=== PATIENT | male | born 1935 | race Caucasian/White ===

== ENCOUNTER → 2018-11-28 | Outpatient (CLI) | payer MEDICARE ==
[~2018-11-28] MED LIST: AMOCLA875 PO; ASPI325 PO; ATEN50 PO; CLOP75 PO; Cleocin HCl150 MG PO; FISH1000 PO; HYDR1TAB94 PO; INSR10I; INSUASPI; INSUL100I; LEVSOD137 PO; LISI5 PO; OMEP20ER PO; OXYC5 PO; VITAMIN D-32000 UNIT PO
== END | disposition home or self-care (01) ==
LOC: LAB SHORT 09:24 → PLD 09:24
DX: C44.212 Basal cell carcinoma of skin of right ear and external auricular canal (principal)
CPT/HCPCS: 88305

== ENCOUNTER → 2018-12-31 | Outpatient (CLI) | payer MEDICARE | LOC: LAB SHORT 13:57 → PLD 13:57 | DX: C44.212 Basal cell carcinoma of skin of right ear and external auricular canal (principal) | CPT/HCPCS: 88305 ==

== ENCOUNTER 2020-10-19 13:48 | Emergency (ER) | payer MEDICARE ==
[~2020-10-19] VITALS: Ht 180.3 cm; Wt 95.2 kg
[~2020-10-19 13:48] MED LIST changes: +ATOR80 PO; +Aspirin EC81 MG PO; +FISH OIL 1,2001 EACH PO; +HUMULIN R500 UNIT/1 SC; +INSULANPEN SC; +Lisinopril2.5 MG PO; +METO50 PO; +NICO21TP TOP; +NITR.4SL SL; +OMEPRAZOLE20 MG PO; +Zocor20 MG PO
[2020-10-19 15:30] LABS: Source, Urine Clean Catch
[2020-10-19 15:40] LABS: Appearance, Urine Clear (Clear); Bilirubin, Urine Neg (Neg); Blood, Urine 2+ (Neg); Color, Urine Yellow (P-Yellow); Glucose Qualitative, Urine 3+ (Neg); Ketones, Urine Neg (Neg); Leukocyte Esterase, Urine Neg (Neg); Nitrite, Urine Neg (Neg); Protein, Urine 4+ (Neg); Urobilinogen, Urine NORM (Normal)
[2020-10-19 15:53] LABS: BASOPHILS ABSOLUTE AUTO 0.05 K/mm3 (0.00-0.23); BASOPHILS PERCENT AUTO 1 % (0-2); EOSINOPHILS ABSOLUTE AUTO 0.16 K/mm3 (0.00-0.68); EOSINOPHILS PERCENT AUTO 3 % (0-6); Hematocrit 39.7 % (37.0-53.0); IMMATURE GRAN ABSOLUTE AUTO 0.04 K/mm3 (0.00-0.10); IMMATURE GRAN PERCENT AUTO 1 % (0-1); LYMPHOCYTES ABSOLUTE AUTO 1.64 K/mm3 (0.84-5.20); LYMPHOCYTES PERCENT AUTO 25 % (21-46); MONOCYTES ABSOLUTE AUTO 0.36 K/mm3 (0.16-1.47); MONOCYTES PERCENT AUTO 6 % (4-13); Mean Corpuscular HGB 31.3 pg (26.0-34.0); Mean Corpuscular HGB Conc 32.7 g/dL (31.5-36.5); Mean Corpuscular Volume 95 fL (80-100); Mean Platelet Volume 9.6 fL (9.1-12.4); NEUTROPHILS ABSOLUTE AUTO 4.24 K/mm3 (1.96-9.15); NEUTROPHILS PERCENT AUTO 65 % (41-73); Platelet Count 156 K/mm3 (150-400); RDW Coefficient Variation 15.2 % (11.7-14.2); RDW Standard Deviation 52.7 fL (35.1-46.3); Red Blood Cell Count 4.16 M/mm3 (4.30-5.90); White Blood Cell Count 6.49 K/mm3 (4.00-11.30)
[2020-10-19 16:03] LABS: Bacteria Rare /hpf; Red Blood Cells, Urine 0-2 /hpf (0-2); Squamous Epithelial Cells Not Seen /hpf (Few); White Blood Cells, Urine 0-2 /hpf (0-5)
[2020-10-19 16:19] LABS: Bun/Creatinine Ratio 15.5 (12.0-20.0); Calcium, Blood 8.7 mg/dL (8.5-10.1); Creatinine, Blood 1.74 mg/dL (0.60-1.20); Potassium, Blood 3.9 mmol/L (3.5-5.5)
[2020-10-19] MEDS ORDERED: Flomax0.4 MG PO (16:53)
== END 2020-10-19 17:30 | disposition home or self-care (01) ==
LOC: ER 13:48
PROVIDERS: Physician Assistant
DX: R33.9 Retention of urine, unspecified (principal); E11.9 Type 2 diabetes mellitus without complications; E03.9 Hypothyroidism, unspecified; I25.10 Atherosclerotic heart disease of native coronary artery without angina pectoris; I25.2 Old myocardial infarction; E78.00 Pure hypercholesterolemia, unspecified; F17.210 Nicotine dependence, cigarettes, uncomplicated; Z95.1 Presence of aortocoronary bypass graft; Z79.4 Long term (current) use of insulin; Z79.82 Long term (current) use of aspirin; Z79.899 Other long term (current) drug therapy; Z79.02 Long term (current) use of antithrombotics/antiplatelets; Z96.0 Presence of urogenital implants
CPT/HCPCS: 36415; 51702; 51798; 80048; 81001; 85025; 99283-25

== ENCOUNTER → 2020-10-27 | Outpatient (CLI) | payer MEDICARE ==
[~2020-10-27] MED LIST changes: +Flomax0.4 MG PO
== END | disposition home or self-care (01) ==
LOC: LAB SHORT 16:34
DX: N39.0 Urinary tract infection, site not specified (principal)
CPT/HCPCS: 87077; 87086; 87186

== ENCOUNTER 2020-10-30 18:41 | Emergency (ER) | payer OTHER, MEDICARE ==
[~2020-10-30] VITALS: Ht 182.9 cm; Wt 99.8 kg
[2020-10-30 19:10] LABS: BASOPHILS ABSOLUTE AUTO 0.04 K/mm3 (0.00-0.23); BASOPHILS PERCENT AUTO 0 % (0-2); EOSINOPHILS ABSOLUTE AUTO 0.01 K/mm3 (0.00-0.68); EOSINOPHILS PERCENT AUTO 0 % (0-6); Hematocrit 35.4 % (37.0-53.0); Hemoglobin 11.5 g/dL (13.5-17.5); IMMATURE GRAN ABSOLUTE AUTO 0.11 K/mm3 (0.00-0.10); IMMATURE GRAN PERCENT AUTO 1 % (0-1); LYMPHOCYTES ABSOLUTE AUTO 0.55 K/mm3 (0.84-5.20); LYMPHOCYTES PERCENT AUTO 6 % (21-46); MONOCYTES ABSOLUTE AUTO 0.45 K/mm3 (0.16-1.47); MONOCYTES PERCENT AUTO 5 % (4-13); Mean Corpuscular HGB 31.4 pg (26.0-34.0); Mean Corpuscular HGB Conc 32.5 g/dL (31.5-36.5); Mean Corpuscular Volume 97 fL (80-100); Mean Platelet Volume 9.2 fL (9.1-12.4); NEUTROPHILS ABSOLUTE AUTO 8.51 K/mm3 (1.96-9.15); NEUTROPHILS PERCENT AUTO 88 % (41-73); Platelet Count 120 K/mm3 (150-400); RDW Standard Deviation 53.6 fL (35.1-46.3); Red Blood Cell Count 3.66 M/mm3 (4.30-5.90); White Blood Cell Count 9.67 K/mm3 (4.00-11.30)
[2020-10-30 19:23] LABS: International Normalized Ratio 1.07; Prothrombin Time Results 11.4 Sec (9.7-11.5)
[2020-10-30 19:32] LABS: Alanine Aminotransfer (ALT/SGP 18 U/L (12-78); Albumin, Blood 3.2 g/dL (3.4-5.0); Albumin/Globulin Ratio 0.7 (0.8-1.8); Alk Phos 102 U/L (50-136); Anion Gap 9 mmol/L (6-16); Aspartate Aminotrans (AST/SGOT 26 U/L (12-37); Bilirubin, Total 1.1 mg/dL (0.1-1.0); Blood Urea Nitrogen 27 mg/dL (8-24); Bun/Creatinine Ratio 16.3 (12.0-20.0); CO2, Blood 23 mmol/L (21-32); Calcium, Blood 9.2 mg/dL (8.5-10.1); Chloride, Blood 103 mmol/L (98-108); Creatinine, Blood 1.66 mg/dL (0.60-1.20); Ethanol (Alcohol), Blood, Med <3 mg/dL; Globulin, Blood 4.5 g/dL (2.2-4.0); Glomerular Filtration Rate 42 (60-); Glucose, Blood 237 mg/dL (70-99); Potassium, Blood 4.4 mmol/L (3.5-5.5); Sodium, Blood 135 mmol/L (136-145); Total Protein, Blood 7.7 g/dL (6.4-8.2)
[2020-10-30 20:41] LABS: Source, Urine Catheter
[2020-10-30 20:43] LABS: Bilirubin, Urine Neg (Neg); Blood, Urine 5+ (Neg); Glucose Qualitative, Urine 2+ (Neg); Ketones, Urine 2+ (Neg); Leukocyte Esterase, Urine Neg (Neg); Nitrite, Urine Neg (Neg); Protein, Urine 4+ (Neg); Urobilinogen, Urine NORM (Normal); pH, Urine 6.5 (5.0-8.0)
[2020-10-30 20:45] LABS: Appearance, Urine Turbid (Clear); Color, Urine Red (P-Yellow)
[2020-10-30 20:49] LABS: Bacteria Not Seen /hpf; Red Blood Cells, Urine TNTC /hpf (0-2); Squamous Epithelial Cells Not Seen /hpf (Few)
== END 2020-10-30 21:15 | disposition short-term general hospital (02) ==
LOC: ER 18:41
PROVIDERS: Emergency Medicine
DX: I62.01 Nontraumatic acute subdural hemorrhage (principal); E11.9 Type 2 diabetes mellitus without complications; E78.5 Hyperlipidemia, unspecified; I10 Essential (primary) hypertension; I25.2 Old myocardial infarction; F17.210 Nicotine dependence, cigarettes, uncomplicated; Z79.02 Long term (current) use of antithrombotics/antiplatelets; Z79.899 Other long term (current) drug therapy; Z79.4 Long term (current) use of insulin; Z95.1 Presence of aortocoronary bypass graft
CPT/HCPCS: 36415; 51702; 70450; 71045; 71260; 72125; 74177; 80053; 81001; 82947; 83690; 85025; 85610; 86850; 86900; 86901; 87077; 87086; 87186; 93005; 93010; 96374-59; 96375-59; 99285-25; G0480; J1170; J2405; L0160; Q9967

== ENCOUNTER 2025-10-22 19:34 | Inpatient (IN) | payer MEDICARE ==
[~2025-10-22] VITALS: Ht 172.7 cm; Wt 96.9 kg
[2025-10-22 20:25] LABS: BASOPHILS ABSOLUTE AUTO 0.01 K/mm3 (0.00-0.23); BASOPHILS PERCENT AUTO 0 % (0-2); EOSINOPHILS ABSOLUTE AUTO 0.01 K/mm3 (0.00-0.68); EOSINOPHILS PERCENT AUTO 0 % (0-6); Hematocrit 29.5 % (37.0-53.0); Hemoglobin 9.7 g/dL (13.5-17.5); IMMATURE GRAN ABSOLUTE AUTO 0.07 K/mm3 (0.00-0.10); IMMATURE GRAN PERCENT AUTO 2 % (0-1); LYMPHOCYTES ABSOLUTE AUTO 0.58 K/mm3 (0.84-5.20); LYMPHOCYTES PERCENT AUTO 14 % (21-46); MONOCYTES ABSOLUTE AUTO 0.32 K/mm3 (0.16-1.47); MONOCYTES PERCENT AUTO 8 % (4-13); Mean Corpuscular HGB Conc 32.9 g/dL (31.5-36.5); Mean Corpuscular Volume 96 fL (80-100); NEUTROPHILS ABSOLUTE AUTO 3.04 K/mm3 (1.96-9.15); NEUTROPHILS PERCENT AUTO 76 % (41-73); NRBC ABSOLUTE 0.00 K/mm3 (0.00-0.02); NRBC Auto 0.0 /100 WBC (0.0-0.2); Platelet Count 91 K/mm3 (150-400); RDW Coefficient Variation 15.1 % (11.7-14.2); RDW Standard Deviation 53.2 fL (35.1-46.3)
[2025-10-22 20:51] LABS: Alanine Aminotransfer (ALT/SGP 30.0 U/L (12-78); Albumin, Blood 2.7 g/dL (3.4-5.0); Albumin/Globulin Ratio 0.8 (0.8-1.8); Anion Gap 10.0 mmol/L (3-11); Aspartate Aminotrans (AST/SGOT 22.0 U/L (12-37); Bilirubin, Total 0.3 mg/dL (0.1-1.0); Blood Urea Nitrogen 98.0 mg/dL (8-24); CO2, Blood 15.0 mmol/L (21-32); Calcium, Blood 6.0 mg/dL (8.5-10.1); Chloride, Blood 119.0 mmol/L (98-108); Creatinine, Blood 4.69 mg/dL (0.60-1.20); Globulin, Blood 3.6 g/dL (2.2-4.0); Glucose, Blood 95.0 mg/dL (70-99); Magnesium, Blood 0.9 mg/dL (1.6-2.4); Potassium, Blood 4.3 mmol/L (3.5-5.5); Sodium, Blood 140.0 mmol/L (136-145); Total Protein, Blood 6.3 g/dL (6.4-8.2)
[2025-10-22 21:13] LABS: Influenza A, PCR NEGATIVE (NEGATIVE); Influenza B, PCR NEGATIVE (NEGATIVE); Resp Syncytial Virus, PCR NEGATIVE (NEGATIVE); SARS-Cov-2 (COVID-19) PCR, MMC NEGATIVE (NEGATIVE)
[2025-10-22] MEDS ORDERED: Magnesium Sulf 2 GM/Water 50ML 50 ML IV ONE (21:20)
[2025-10-22] MEDS ORDERED: FentaNYL Citrate 50 MCG/ML 2 ML Injection IV ONE (21:30)
[2025-10-22 21:43] LABS: Source, Urine Clean Catch
[2025-10-22] MEDS ORDERED: NS 1,000 ML IV SCH (21:50)
[2025-10-22 21:57] LABS: Glucose Qualitative, Urine Neg (Neg); Ketones, Urine Neg (Neg); Leukocyte Esterase, Urine Neg (Neg); Protein, Urine 3+ (Neg); Specific Gravity, Urine 1.020 (1.003-1.022); Urobilinogen, Urine NORM (Normal)
[2025-10-22 22:12] LABS: Bilirubin, Urine 1+ (Neg); Color, Urine Yellow (P-Yellow)
[2025-10-22 22:13] LABS: White Blood Cells, Urine 0-2 /hpf (0-5)
[2025-10-22] MEDS ORDERED: Ondansetron HCl 2 MG / ML 2ML Vial IV PRN (23:35)
[2025-10-22] MEDS ORDERED: FLU VACC TS2025(65UP)/MF59C/PF 45 MCG/0.5 ML SYRINGE IM SCH (23:35)
[2025-10-22] MEDS ORDERED: NS 1,000 ML IV ONE (23:43)
[2025-10-22] MEDS ORDERED: Cefepime HCl 1,000 MG in NS 100 ML IV SCH (23:49)
[2025-10-23] VITALS (85 sets, daily range): BP systolic 74–153; BP diastolic 47–115
[2025-10-23] MEDS ORDERED: NS 1,000 ML IV SCH
[2025-10-23 00:49] LABS: Creatinine, Urine Random 148.0 mg/dL (27.00-270.00); Sodium, Urine, Random 23.0 mmol/L (20-110)
[2025-10-23 01:14] LABS: Thyroid Stimulating Hormone 6.1 uIU/mL (0.360-4.800)
[2025-10-23] MEDS ORDERED: Sodium Bicarb 8.4% Inj 150 MEQ in Dextrose 5% 1,000 ML IV ONE (01:30)
[2025-10-23 02:10] LABS: BASOPHILS ABSOLUTE AUTO 0.01 K/mm3 (0.00-0.23); BASOPHILS PERCENT AUTO 0 % (0-2); EOSINOPHILS ABSOLUTE AUTO 0.02 K/mm3 (0.00-0.68); EOSINOPHILS PERCENT AUTO 1 % (0-6); Hematocrit 24.8 % (37.0-53.0); Hemoglobin 8.3 g/dL (13.5-17.5); IMMATURE GRAN ABSOLUTE AUTO 0.09 K/mm3 (0.00-0.10); IMMATURE GRAN PERCENT AUTO 2 % (0-1); LYMPHOCYTES ABSOLUTE AUTO 0.73 K/mm3 (0.84-5.20); LYMPHOCYTES PERCENT AUTO 19 % (21-46); MONOCYTES ABSOLUTE AUTO 0.30 K/mm3 (0.16-1.47); MONOCYTES PERCENT AUTO 8 % (4-13); Mean Corpuscular HGB Conc 33.5 g/dL (31.5-36.5); Mean Corpuscular Volume 95 fL (80-100); NEUTROPHILS ABSOLUTE AUTO 2.72 K/mm3 (1.96-9.15); NEUTROPHILS PERCENT AUTO 70 % (41-73); NRBC ABSOLUTE 0.00 K/mm3 (0.00-0.02); NRBC Auto 0.0 /100 WBC (0.0-0.2); Platelet Count 81 K/mm3 (150-400); RDW Coefficient Variation 15.2 % (11.7-14.2); RDW Standard Deviation 53.1 fL (35.1-46.3)
[2025-10-23 04:47] LABS: Alanine Aminotransfer (ALT/SGP 48.0 U/L (12-78); Albumin, Blood 2.3 g/dL (3.4-5.0); Albumin/Globulin Ratio 0.7 (0.8-1.8); Anion Gap 9.0 mmol/L (3-11); Aspartate Aminotrans (AST/SGOT 52.0 U/L (12-37); Bilirubin, Total 0.3 mg/dL (0.1-1.0); Blood Urea Nitrogen 82.0 mg/dL (8-24); CO2, Blood 18.0 mmol/L (21-32); Calcium, Blood 5.6 mg/dL (8.5-10.1); Chloride, Blood 120.0 mmol/L (98-108); Creatinine, Blood 3.91 mg/dL (0.60-1.20); Globulin, Blood 3.2 g/dL (2.2-4.0); Glucose, Blood 89.0 mg/dL (70-99); Magnesium, Blood 1.1 mg/dL (1.6-2.4); Phosphorus, Blood 5.9 mg/dL (2.5-4.9); Potassium, Blood 3.8 mmol/L (3.5-5.5); Sodium, Blood 143.0 mmol/L (136-145); Total Protein, Blood 5.5 g/dL (6.4-8.2)
[2025-10-23] MEDS ORDERED: Mag Sulfate 1 GM/D5% 100ML 100 ML IV STA (05:23)
--- NOTE | 2025-10-23 05:28 | NUR ---
PATIENT TO ICU 8 FROM ER AT 0220. PATIENT IS ALERT AND ORIENTED X4, OHKAY OWINGEH. SP02 94% ON RA, DENIES SOB. HR SR 60s, DENIES CP/PRESSURE AT THIS TIME. LEVOPHED INFUSING TO MAINTAIN MAP >65. CENTRAL LINE PLACED AFTER PATIENT ARRIVED TO ICU, INSERTION SITE BLEEDING AND SATURATED DRESSING. DRESSING CHANGED, SHELDON AND GAUZE PLACED UNDER CHG DRESSING AND PRESSURE HELD TO SITE. SITE CONTINUES TO BLEED BUT APPEARS TO BE LESS AT THIS TIME, WILL CONTINUE TO REASSES. TEMP PACE PATENT AND DRAINING DARK [place] URINE TO GRAVITY. TEMP 96.2, WARM BLANKETS AND TEMP TURNED UP IN ROOM. PATIENT HAS SKIN TEAR TO RIGHT FOREARM. PHOTOS TAKEN AND DRESSING APPLIED. PHOTOS OF BLE, DISCOLORED AND DRY SKIN WITH SOME SCABS. ARTERIAL US DONE THIS SHIFT. SEE ASSESSMENT FOR MORE INFORMATION
[2025-10-23] MEDS ORDERED: CALCIUM GLUC IN NACL, ISO-OSM 50 ML IV ONE ×2 (06:30→18:50)
[2025-10-23] MEDS ORDERED: Insulin Human Lispro 100 Units/ML 3ML Syringe SC SCH (07:30)
[2025-10-23] MEDS ORDERED: Darbepoetin (Pharmacy Consult) SC SCH (07:35)
--- NOTE | 2025-10-23 08:43 | NUR ---
DR. QUINONEZ INFORMED OF CONSULT THIS MORNING. ORDERS TO DC ALL LABS AND THEN NEW LABS ORDERED FOR NOON. DECREASE RATE OF BICARB GTT TO 100ML/HR AND RUN UNTIL NOON LABS ARE BACK. PT HAS ONGOING OOZING FROM CENTRAL LINE, BUT CLOTS ARE FORMING ON THE GAUZE REINFORCING THE DRESSING. DRESSING LEFT IN PLACE SINCE CLOTS ARE FORMING AND CLEAN GAUZE PLACED BEHIND PT TO BE ABLE TO ASSESS FOR NEW BLEEDING.
[2025-10-23] MEDS ORDERED: Sodium Bicarb 8.4% Inj 150 MEQ in Dextrose 5% 1,000 ML IV SCH (08:45)
[2025-10-23] MEDS ORDERED: Heparin Sodium,Porcine 5,000 UNIT/0.5 ML SDV SC SCH (09:00)
[2025-10-23] MEDS ORDERED: Lactobacil 2-S.Thermo-Bifido 1 1 Cap PO SCH (09:00)
[2025-10-23] MEDS ORDERED: FentaNYL Citrate 50 MCG/ML 2 ML Injection IV PRN (11:10)
[2025-10-23] MEDS ORDERED: PANTOPRAZOLE PO (12:08)
[2025-10-23] MEDS ORDERED: TAMS.4ER PO (12:09)
[2025-10-23] MEDS ORDERED: FINA5 PO (12:09)
--- NOTE | 2025-10-23 12:17 | NUR ---
REASSESSMENT PT HAS BEEN RESTING IN BED THROUGHOUT THE MORNING. LEVOPHED WAS ABLE TO BE TITRATED OFF. PT'S CENTRAL LINE HAS STOPPED OOZING. PT IS ALERT AND ORIENTED. LUNGS CLEAR, RA, SR. PAEC IN PLACE AND 24 HOUR URINE IN PROCESS OF BEING COLLECTED. NO STOOL SO FAR THIS MORNING. PT'S FAMILY CAME AND WERE UPDATED.
[2025-10-23 12:31] LABS: Prothrombin Time Results 14.0 Sec (9.7-11.5)
[2025-10-23 12:32] LABS: CO2, Blood 20.0 mmol/L (21-32); Magnesium, Blood 1.2 mg/dL (1.6-2.4)
[2025-10-23] MEDS ORDERED: Calcium Gluconate 10% 1,000 MG in NS 50 ML IV ONE (13:15)
[2025-10-23] MEDS ORDERED: Magnesium Sulf 2 GM/Water 50ML 50 ML IV ONE (13:15)
[2025-10-23] MEDS ORDERED: Darbepoetin Alfa In Albumn Sol 40 MCG/0.4 ML SC SCH (17:00)
--- NOTE | 2025-10-23 17:47 | NUR ---
SHIFT SUMMARY PT HAS BEEN RESTING IN BED THROUGHOUT THE SHIFT. THE LEVOPHED WAS ABLE TO BE TITRATED OFF TODAY, BUT HAD TO BE TURNED BACK ON WHEN HE FELL ASLEEP. HIS OXYGEN WAS ALSO TITRATED OFF UNTIL HE FELL BACK ASLEEP. PT WAS DROPPING TO THE MID 70S BEFORE RETURNING TO THE 90S. ONCE 2L/NC PLACED ON PT, HE MAINTAINED ABOVE 90%. LUNGS HAVE BEEN CLEAR, SR. PACE DRAINING YELLOW URINE WITH SMALL AMT OF SEDIMENT. 24 HOUR URINE COLLECTION IN PROCESS. NO BMS THIS SHIFT. PT'S ABDOMEN IS DISTENDED, BOWEL TONES HYPOACTIVE. HE HAS HAD TROUBLE GETTING COMFORTABLE IN THE BED SO HAS REFUSED TURNS THROUGH THE SECOND HALF OF THE SHIFT. SMALL POSITION CHANGES MADE AND PT DOES LIKE TO BE MOVED AROUND LONG HE ENDS UP BACK ON HIS BACK. CENTRAL LINE DRESSING CHANGED THIS AFTERNOON. MAIN CLOT AT INSERTION SITE LEFT INTACT FOR NOW SINCE THERE WAS SO MUCH BLEEDING THIS MORNING. REST OF THE AREA CLEANED AND CHG DRESSING APPLIED. ONLY SM, DIME SIZE AMT OF NEW OOZING SINCE THE DRESSING CHANGE.
[2025-10-23] MEDS ORDERED: MetroNIDAZOLE 500MG/NS 100 ml 100 ML IV SCH (18:00)
[2025-10-23 18:33] LABS: Magnesium, Blood 1.8 mg/dL (1.6-2.4)
[2025-10-23 18:39] LABS: Albumin, Blood 2.3 g/dL (3.4-5.0); Anion Gap 9 mmol/L (3-11); Blood Urea Nitrogen 74 mg/dL (8-24); CO2, Blood 20 mmol/L (21-32); Calcium, Blood 5.9 mg/dL (8.5-10.1); Chloride, Blood 119 mmol/L (98-108); Creatinine, Blood 3.45 mg/dL (0.60-1.20); Glucose, Blood 111 mg/dL (70-99); Phosphorus, Blood 5.6 mg/dL (2.5-4.9); Potassium, Blood 3.6 mmol/L (3.5-5.5); Sodium, Blood 144 mmol/L (136-145)
--- NOTE | 2025-10-23 20:00 | NUR ---
ASSUMPTION OF CARE: ASSUMED CARE AT START OF SHIFT (1899). REPORT RECEIVED FROM DAY SH IFT RN. PT IS DOING WELL AND RESTING IN BED. PT IS ALERT AND FOLLOWING COMMANDS. PT DENIES ANY PAIN, CP, OR SOB AT THIST AMY. LUNG SOUNDS ARE CLEAR AND EQUAL, ON RA WITH SPO2 >95%. SINUS RYTHM WITH SBP: 90-120'S MAP >65 HR: 70'S. LEVOPHED ON STANDBY SINCE 1699. IV: CENTERAL LINE IN RIJ. PACE CATHETER IN PLACE AND DRAINING TO GRAVITY. LINES, CORDS, AND TUBES PLACED OUT OF REACH. CALLL LIGHT PLACED WITHIN REACH.
[2025-10-24] VITALS (21 sets, daily range): BP systolic 76–162; BP diastolic 53–88
[2025-10-24 04:27] LABS: BASOPHILS ABSOLUTE AUTO 0.01 K/mm3 (0.00-0.23); BASOPHILS PERCENT AUTO 0 % (0-2); EOSINOPHILS ABSOLUTE AUTO 0.03 K/mm3 (0.00-0.68); EOSINOPHILS PERCENT AUTO 1 % (0-6); Hematocrit 21.5 % (37.0-53.0); Hemoglobin 7.3 g/dL (13.5-17.5); IMMATURE GRAN ABSOLUTE AUTO 0.07 K/mm3 (0.00-0.10); IMMATURE GRAN PERCENT AUTO 2 % (0-1); LYMPHOCYTES ABSOLUTE AUTO 0.75 K/mm3 (0.84-5.20); LYMPHOCYTES PERCENT AUTO 21 % (21-46); MONOCYTES ABSOLUTE AUTO 0.32 K/mm3 (0.16-1.47); MONOCYTES PERCENT AUTO 9 % (4-13); Mean Corpuscular HGB Conc 34.0 g/dL (31.5-36.5); Mean Corpuscular Volume 94 fL (80-100); NEUTROPHILS ABSOLUTE AUTO 2.38 K/mm3 (1.96-9.15); NEUTROPHILS PERCENT AUTO 67 % (41-73); NRBC ABSOLUTE 0.00 K/mm3 (0.00-0.02); NRBC Auto 0.0 /100 WBC (0.0-0.2); Platelet Count 80 K/mm3 (150-400); RDW Coefficient Variation 15.2 % (11.7-14.2); RDW Standard Deviation 52.8 fL (35.1-46.3)
[2025-10-24 04:45] LABS: Albumin, Blood 2.0 g/dL (3.4-5.0); Anion Gap 7 mmol/L (3-11); Blood Urea Nitrogen 70 mg/dL (8-24); CO2, Blood 23 mmol/L (21-32); Calcium, Blood 6.1 mg/dL (8.5-10.1); Chloride, Blood 122 mmol/L (98-108); Creatinine, Blood 3.03 mg/dL (0.60-1.20); Glucose, Blood 59 mg/dL (70-99); Magnesium, Blood 1.7 mg/dL (1.6-2.4); Phosphorus, Blood 4.4 mg/dL (2.5-4.9); Potassium, Blood 3.4 mmol/L (3.5-5.5); Sodium, Blood 149 mmol/L (136-145)
[2025-10-24] MEDS ORDERED: Potassium Chl 20MEQ/Water100ML 100 ML IV ONE (05:00)
[2025-10-24] MEDS ORDERED: Calcium Gluconate 10% 1,000 MG in NS 50 ML IV ONE (05:05)
--- NOTE | 2025-10-24 06:34 | NUR ---
SHIFT SUMMARY: PT IS DOING WELL AND RESTING IN BED. NO ACUTE CHANGES THROUGHOUT THE NIGHT. PT WAS ABLE TO SLEEP PART OF THE NIGHT. PT DENIES ANY PAIN, CP, OR SOB. BUT WHEN PT IS SLEEP THEIR SPO2 LEVELS WILL DROP INTO THE 60'S BRIEFLY. PT WAS PLACED ON 02 @ 2LM VIA NC AND THEIR SPO2 >95%. THE REST OF THE VITALS REMAIN STABLE. IV: CENTERAL LINE IN RIJ. PACE CATHETER IN PLACE AND DRAINING TO GRAVITY. LINES AND CORDS PLACED OUT OF REACH. CALL LIGHT PLACED WITHIN REACH.
--- NOTE | 2025-10-24 13:30 | NUR ---
PT WAS COOPERATIVE AND TOLERATED HIS PO PILLS. WITH PACE CATHETER DRAINING TO UROMETER AT BEDSIDE. PT WAS ABLE TO STAND WITH ASSISTANCE AND USE OF WALKER TO THE RECLINER. 24HR URINE COLLECTION WAS SENT TO LAB AT 1100. PT WAS DOWNGRADED TO PCU AND RIGHT IJ CATH WAS REMOVED ASEPTICALLY. ENDORSED TO THE PCU NURSE AND WAS THEN TRANSFERRED TO BED IN PCU 8.
--- NOTE | 2025-10-24 13:59 | NUR ---
ARRIVAL: STEVE ARRIVES TO UNIT AND ABLE TO TRANSFER TO OUR BED VIA 1 PERSON ASSIST WITH FRONT WHEELED WALKER. SETVE IS ALERT AND ORIENTED X4, HARD OF HEARING. SATTING >92% ON 2LITERS VIA NASAL CANNULA. STEVE DENIED ANY CHEST PAIN/PRESSURE OR PAIN AT ALL. ORIENTED TO ROOM & CALL LIGHT. STEVE HAS CALL LIGHT WITHIN REACH, BED IN LOWEST LOCKED POSIITON & STATING NOTHING ELSE IS NEEDED AT THIS TIME.
--- NOTE | 2025-10-24 16:49 | NUR ---
CALLED: THIS RN CALLED DEVI REGARDING SODIUM LAB RESULTS. GAVE NO NEW ORDERS BUT TO CALL IN THE AM WITH MORNING LAB RESULTS.
--- NOTE | 2025-10-24 17:09 | NUR ---
SHIFT SUMMARY: PATIENT IS ALERT AND ORIENTED X4 & COOPERATIVE WITH HIS CARE, IS HARD OF HEARING. SATTING >92% ON ROOM AIR, PLACED ON 1-2 LITERS VIA NASAL CANNULA WHEN SLEEPING HE DOES DESAT. ON TELE SHOWING SINUS RHYTHM IN 80 S. PATIENT HAS A DRESSING OVER RIGHT IJ SITE THAT WAS TAKEN OUT TODAY AND PATIENT REPORTS IT IS SORE. PATIENT IS 1 PERSON ASSIST WITH FRONT WHEELED WALKER. HAS D5 RUNNING AT 75ML/HR. SODIUM AFTER LAST DRAW WAS 147 AND MD QUINONEZ WAS NOTIFIED OF THE RESULT. PATIENT CURRENTLY IN BED WATCHING TV, CALL LIGHT WITHIN REACH, BED IN LOWEST LOCKED POSITION & STATING NOTHING ELSE IS NEEDED AT THIS TIME.
--- NOTE | 2025-10-24 19:38 | NUR ---
ASSUMPTION OF CARE ASSUMED PT'S CARE AT 1915.PT SITTING UP IN CHAIR,OPENS EYES TO VOICE.BEDSIDE REPORT COMPLETED,PLAN OF CARE REVIEWED.PT DENIES PAIN,DENIES SOB.PT GIVEN A WARM BLANKET.DENIES FURTHER NEEDS.MONITORING ONGOING PER CAREPLAN.CALL LIGHT AND PT'S ITEMS WITHIN REACH.
[2025-10-25 02:50] LABS: BASOPHILS ABSOLUTE AUTO 0.02 K/mm3 (0.00-0.23); BASOPHILS PERCENT AUTO 0 % (0-2); EOSINOPHILS ABSOLUTE AUTO 0.03 K/mm3 (0.00-0.68); EOSINOPHILS PERCENT AUTO 1 % (0-6); Hematocrit 26.6 % (37.0-53.0); Hemoglobin 8.7 g/dL (13.5-17.5); IMMATURE GRAN ABSOLUTE AUTO 0.08 K/mm3 (0.00-0.10); IMMATURE GRAN PERCENT AUTO 2 % (0-1); LYMPHOCYTES ABSOLUTE AUTO 0.73 K/mm3 (0.84-5.20); LYMPHOCYTES PERCENT AUTO 15 % (21-46); MONOCYTES ABSOLUTE AUTO 0.33 K/mm3 (0.16-1.47); MONOCYTES PERCENT AUTO 7 % (4-13); Mean Corpuscular HGB Conc 32.7 g/dL (31.5-36.5); Mean Corpuscular Volume 94 fL (80-100); NEUTROPHILS ABSOLUTE AUTO 3.61 K/mm3 (1.96-9.15); NEUTROPHILS PERCENT AUTO 75 % (41-73); NRBC ABSOLUTE 0.00 K/mm3 (0.00-0.02); NRBC Auto 0.0 /100 WBC (0.0-0.2); Platelet Count 94 K/mm3 (150-400); RDW Coefficient Variation 15.4 % (11.7-14.2); RDW Standard Deviation 53.2 fL (35.1-46.3)
[2025-10-25 03:05] LABS: Albumin, Blood 2.4 g/dL (3.4-5.0); Anion Gap 6 mmol/L (3-11); Blood Urea Nitrogen 55 mg/dL (8-24); CO2, Blood 23 mmol/L (21-32); Calcium, Blood 6.7 mg/dL (8.5-10.1); Chloride, Blood 118 mmol/L (98-108); Creatinine, Blood 2.36 mg/dL (0.60-1.20); Glucose, Blood 113 mg/dL (70-99); Magnesium, Blood 1.5 mg/dL (1.6-2.4); Phosphorus, Blood 3.6 mg/dL (2.5-4.9); Potassium, Blood 3.8 mmol/L (3.5-5.5); Sodium, Blood 143 mmol/L (136-145)
[2025-10-25 03:18] VITALS: BP 139/78
[2025-10-25] MEDS ORDERED: Mag Sulfate 1 GM/D5% 100ML 100 ML IV STA (04:46)
[2025-10-25] MEDS ORDERED: Levothyroxine Sodium 0.137 MG Tab PO SCH (06:00)
--- NOTE | 2025-10-25 06:47 | NUR ---
PT MONITORED DURING THE SHIFT.PT AWAKE MOST OF THE NIGHT,RESTLESS,STATING THAT HE IS NOT COMFORTABLE.PRN ANXIETY MED AND PAIN GIVEN.PT REPOSITIONED MULTIPLE TIMES.PT DID NOT USE THE CALL LIGHT JUST YELLED OUT FOR STAFF.STAFF IS THE ROOM SEVERAL TIMES.PT FELL ASLEEP BRIEFLY THIS MORNING.AWAKE AT THIS TIME,REPORTS THAT THE BED IS UNCOMFORTABLE.PT DENIES FURTHER NEEDS.CALL LIGHT AND PT'S ITEMS WITHIN REACH.MONITORING ONGOING PER CAREPLAN.
[2025-10-25 07:53] VITALS: BP 137/87
--- NOTE | 2025-10-25 08:05 | NUR ---
ASSUMPTION NOTE: THIS RN TO ASSUME CARE OF PATIENT. PATIENT IS ALERT AND ORIENTED X4 & COOPERATIVE WITH HIS CARE. SATTING >92% ON ROOM AIR. PATIENT WAS IN THE CHAIR AND AMBULATED BACK TO BED WITH 1 PERSON ASSIST WITH FRONT WHEELED WALKER. PATIENT HAS D5W AT 50MLS/HR. ANTIBIOTICS ARE HUNG AND PATIENT GOT ALL MORNING MEDS. STEVE HAS CALL LIGHT WITHIN REACH, BED IN LOWEST LOCKED POSITION & STATING NOTHING ELSE IS NEEDED AT THIS TIME.
--- NOTE | 2025-10-25 09:22 | NUR ---
ROUNDED: DEVI ROUNDED AND GAVE PATIENT THE OKAY TO DISCHARGE FROM HIS STAND POINT. VERBAL ORDERS TO STOP FLUIDS & PATIENT AWARE, FAMILY WAS CALLED & EXPRESSED SOME CONCERNS REGARDING HOME HEALTH & PLANS TO MAKE IT HOME.
[2025-10-25 11:15] VITALS: BP 147/84
--- NOTE | 2025-10-25 12:47 | NUR ---
ROUNDED: MD GONG ROUNDED AND PATIENT AGREEABLE TO STAYING ANOTHER NIGHT TO WORK WITH PHYSICAL THERAPY ONCE AGAIN THEY ARE RECCOMENDING SNF BUT PATIENT IS NOT AGREEABLE TO DOING THAT. PATIENT IS NOW MEDICAL WITHOUT TELE STATUS & PACE WILL BE TAKEN OUT.
--- NOTE | 2025-10-25 13:14 | NUR ---
TRANSFER NOTE: THIS RN CALLED TO GIVE REPORT TO RECEIVING RN KYAW. PATIENT & FAMILY AWARE OF THE MOVE UPSTAIRS AND THAT PATIENT IS AGREEABLE TO STAYING ANOTHER NIGHT. PATIENT ALL PERSONAL BELONGINGS TAKEN WITH HIM & WHEELED UP TO MEDICAL FLOOR. SATTING >92% ON ROOM AIR, TELE TAKEN OFF. ALERT AND ORIENTED X4 & COOPERATIVE WITH THE MOVE.
--- NOTE | 2025-10-25 13:32 | NUR ---
TRANSFER PT ARRIVED TO ROOM APPROX 1330. PT AOX4, HARD OF HEARING, ABLE TO MAKE NEEDS KNOWN. 1 PERSON ASSIST FROM WHEELCHIAR TO BED. RECEIVED REPORT FROM MAN OF PCU.
[2025-10-25 13:33] VITALS: BP 155/76
--- NOTE | 2025-10-25 14:35 | NUR ---
TO ROOM TO MEDICATE PATIENT PER REQUEST OF PRIMARY NURSE. PT STATES "I HAVE CALLED MY AND SHE WILL BE HERE IN ABOUT AN HOUR AND I AM LEAVING"PT REPORTS HE IS " UNABLE TO SLEEP IN THE HOSPITAL AND CANT STAY ANOTHER NIGHT" PT STATES I DONT WANT A BAD ALIS AGAINST ME BECAUSE I AM LEAVING" REASSURED PT THAT THERE WILL BE NO BAD LEVI AGAINST HIM, IT IS HIS CHOICE TO LEAVE, DISCUSSED WITH PATIENT THAT IF THERE IS ANY WORSENING IN HOW HE IS FEELING HE SHOULD RETURN TO THE EMERGENCY ROOM IMMEDIATELY. SPOKE WITH DR GONG WHO WILL WRITE DISCHARGE ORDERS. DISCUSSED DISCHARGE PLAN WITH PATIENT, PT PLEASANT AND COOPERATIVE AND STATES "I DONT WANT ANY OF YOU TO BE UPSET WITH ME" REASSURED PATIENT THAT STAFF WISHES THE BEST FOR HIM AND AGAIN INSTRUCTED PT TO RETURN IF ANY WORSENING OF SYMPTOMS
[2025-10-25 15:31] VITALS: BP 159/71
--- NOTE | 2025-10-25 16:50 | NUR ---
PT DISCHARGED TO HOME. DISCHARGE INSTRUCTIONS PROVIDED AND EDUCATED ON AT TIME OF DISCHARGE. ALL VALAUBLES RETURNED AND SENT HOME WITH THE PT.
[2025-10-28 18:47] LABS: CORTISOL,U FREE - RATIO TO CRT 12.34 ug/g CRT; CORTISOL,URN FREE - PER VOLUME 3.58 ug/L; CREATININE,URINE - PER VOLUME 29 mg/dL; HOURS COLLECTED Not Provided hr
== END 2025-10-25 17:09 | disposition home health service (06) | DRG 682 ==
LOC: ER 19:34 → PCU 23:00 → ICUE 23:00 → ER 23:00 → ICUE 10-23 02:20 → PCU 10-24 13:57 → MEDS 10-25 13:22
PROVIDERS: Family Medicine; Internal Medicine Nephrology; Student in an Organized Health Care Education/Training Program; ADMIT Student in an Organized Health Care Education/Training Program
PROC: 3E03329 Introduction of Other Anti-infective into Peripheral Vein, Percutaneous Approach (ICD-10-PCS; principal; 2025-10-22)
PROC: 3E033XZ Introduction of Vasopressor into Peripheral Vein, Percutaneous Approach (ICD-10-PCS; 2025-10-22)
PROC: 02HV33Z Insertion of Infusion Device into Superior Vena Cava, Percutaneous Approach (ICD-10-PCS; 2025-10-22)
DX: N17.9 Acute kidney failure, unspecified (principal); R57.1 Hypovolemic shock; E87.20 Acidosis, unspecified; D61.818 Other pancytopenia; E87.0 Hyperosmolality and hypernatremia; R57.9 Shock, unspecified; I12.9 Hypertensive chronic kidney disease with stage 1 through stage 4 chronic kidney disease, or unspecified chronic kidney disease; E11.22 Type 2 diabetes mellitus with diabetic chronic kidney disease; N18.30 Chronic kidney disease, stage 3 unspecified; E86.9 Volume depletion, unspecified; I25.10 Atherosclerotic heart disease of native coronary artery without angina pectoris; E03.9 Hypothyroidism, unspecified; E88.09 Other disorders of plasma-protein metabolism, not elsewhere classified; D63.1 Anemia in chronic kidney disease; E83.42 Hypomagnesemia; K52.9 Noninfective gastroenteritis and colitis, unspecified; D69.6 Thrombocytopenia, unspecified; E11.51 Type 2 diabetes mellitus with diabetic peripheral angiopathy without gangrene; E87.70 Fluid overload, unspecified; E87.6 Hypokalemia; N40.0 Benign prostatic hyperplasia without lower urinary tract symptoms; E21.3 Hyperparathyroidism, unspecified; Z90.49 Acquired absence of other specified parts of digestive tract; Z95.1 Presence of aortocoronary bypass graft; Z87.891 Personal history of nicotine dependence; Z79.82 Long term (current) use of aspirin; Z79.02 Long term (current) use of antithrombotics/antiplatelets; Z79.899 Other long term (current) drug therapy; Z79.4 Long term (current) use of insulin; Z79.890 Hormone replacement therapy
CPT/HCPCS: 36415; 36556; 51702; 71045; 74176; 80053; 80069; 81001; 82330; 82374; 82530; 82533; 82550; 82570; 82947; 83036; 83605; 83690; 83735; 83935; 83970; 84100; 84295; 84300; 84439; 84443; 84484; 85025; 85610; 87040; 87637; 93005; 93010; 93308; 93922; 96361; 96365; 96366; 96375; 97116; 97161; 97530; 99291-25; A9270; C1751; J0456; J0612; J0692; J0881; J1644; J1720; J3010; J3475; J3480; J7030; J7050; J7070; J7120

== ENCOUNTER 2025-10-25 23:46 | Emergency (ER) | payer MEDICARE ==
[~2025-10-25] VITALS: Ht 180.3 cm; Wt 90.7 kg
[~2025-10-25 23:46] MED LIST changes: +FINA5 PO; +PANTOPRAZOLE PO; +TAMS.4ER PO
[2025-10-26 00:44] LABS: Source, Urine Foley catheter
[2025-10-26 00:56] LABS: BASOPHILS ABSOLUTE AUTO 0.03 K/mm3 (0.00-0.23); BASOPHILS PERCENT AUTO 1 % (0-2); EOSINOPHILS ABSOLUTE AUTO 0.03 K/mm3 (0.00-0.68); EOSINOPHILS PERCENT AUTO 1 % (0-6); Hematocrit 32.0 % (37.0-53.0); Hemoglobin 10.5 g/dL (13.5-17.5); IMMATURE GRAN ABSOLUTE AUTO 0.06 K/mm3 (0.00-0.10); IMMATURE GRAN PERCENT AUTO 1 % (0-1); LYMPHOCYTES ABSOLUTE AUTO 0.72 K/mm3 (0.84-5.20); LYMPHOCYTES PERCENT AUTO 15 % (21-46); MONOCYTES ABSOLUTE AUTO 0.32 K/mm3 (0.16-1.47); MONOCYTES PERCENT AUTO 7 % (4-13); Mean Corpuscular HGB Conc 32.8 g/dL (31.5-36.5); Mean Corpuscular Volume 96 fL (80-100); NEUTROPHILS ABSOLUTE AUTO 3.70 K/mm3 (1.96-9.15); NEUTROPHILS PERCENT AUTO 76 % (41-73); NRBC ABSOLUTE 0.00 K/mm3 (0.00-0.02); NRBC Auto 0.0 /100 WBC (0.0-0.2); Platelet Count 100 K/mm3 (150-400); RDW Coefficient Variation 15.2 % (11.7-14.2); RDW Standard Deviation 53.1 fL (35.1-46.3)
[2025-10-26 00:59] LABS: Bilirubin, Urine Neg (Neg); Glucose Qualitative, Urine Neg (Neg); Ketones, Urine Neg (Neg); Leukocyte Esterase, Urine Neg (Neg); Protein, Urine 3+ (Neg); Specific Gravity, Urine 1.015 (1.003-1.022); Urobilinogen, Urine NORM (Normal)
[2025-10-26 01:01] LABS: Color, Urine Yellow (P-Yellow)
[2025-10-26 01:08] LABS: White Blood Cells, Urine 0-2 /hpf (0-5)
[2025-10-26 01:22] LABS: Alanine Aminotransfer (ALT/SGP 48.0 U/L (12-78); Albumin, Blood 2.7 g/dL (3.4-5.0); Albumin/Globulin Ratio 0.7 (0.8-1.8); Anion Gap 8.0 mmol/L (3-11); Aspartate Aminotrans (AST/SGOT 44.0 U/L (12-37); Bilirubin, Total 0.4 mg/dL (0.1-1.0); Blood Urea Nitrogen 47.0 mg/dL (8-24); CO2, Blood 19.0 mmol/L (21-32); Calcium, Blood 7.3 mg/dL (8.5-10.1); Chloride, Blood 118.0 mmol/L (98-108); Creatinine, Blood 2.01 mg/dL (0.60-1.20); Globulin, Blood 3.8 g/dL (2.2-4.0); Glucose, Blood 133.0 mg/dL (70-99); Potassium, Blood 4.0 mmol/L (3.5-5.5); Sodium, Blood 141.0 mmol/L (136-145); Total Protein, Blood 6.5 g/dL (6.4-8.2)
[2025-10-26 01:30] VITALS: BP 132/66
== END 2025-10-26 02:05 | disposition home or self-care (01) ==
LOC: ER 23:46
PROVIDERS: Student in an Organized Health Care Education/Training Program
DX: T83.091A Other mechanical complication of indwelling urethral catheter, initial encounter (principal); R33.9 Retention of urine, unspecified; Z79.82 Long term (current) use of aspirin; Z79.899 Other long term (current) drug therapy; E11.9 Type 2 diabetes mellitus without complications; E78.5 Hyperlipidemia, unspecified; I10 Essential (primary) hypertension; F17.210 Nicotine dependence, cigarettes, uncomplicated
CPT/HCPCS: 51702; 80053; 81001; 85025; 99283